=== PATIENT | female | born 1975 | race Caucasian/White ===

== ENCOUNTER 2025-01-14 16:39 | Inpatient (IN) | payer OTHER, SELFPAY ==
[2025-01-14] VITALS (13 sets, daily range): BP systolic 109–138; BP diastolic 65–103; BMI 26.3
--- NOTE | 2025-01-14 12:27 | ED.GENMED ---
History of Present Illness
<Yifan Rogers MD, Resident - Last Filed: 01/14/25 15:47>
General
Chief Complaint: Overdose Unintentional
Source: patient and police
Exam Limitations: altered mental status
Time Seen by Provider: 01/14/25 10:52
History of Present Illness
History of Present Illness:
49-year-old comes to the ED from correctional facility due to altered mental status. Thought to be going through withdrawal as she was at the correctional facility yesterday. She was found to be unresponsive and had altered mental status early
this morning after receiving her medications. At the correctional facility, she received Narcan and was brought to the ED for further evaluation. Patient is a crystal meth and heroin user and also drinks 2 pints of vodka daily.
Past History
<Yifan Rogers MD, Resident - Last Filed: 01/14/25 15:47>
Past History
ED Past Medical History: Other (Opioid use disorder), Other (Alcohol use disorder) and Other (Illicit drug use disorder)
Social History
Alcohol: Daily (2 points of vodka daily)
Drug: Other (Crystal meth, heroin)
Review of Systems
<Yifan Rogers MD, Resident - Last Filed: 01/14/25 15:47>
Review of Systems
Allergies reviewed?: Yes
Unable to obtain full review of systems at this time due to: other (Altered mental status)
Other source history: ambulance crew and other (Correctional officers)
Phy Exam
<Yifan Rogers MD, Resident - Last Filed: 01/14/25 15:47>
General Physical Exam
General Presentation: moderate distress
General Skin: cool and diaphoretic
General Mental: anxious and confused
Cardiovascular Exam
Cardiovascular Exam: no murmur and tachycardia
Pulmonary Exam
Pulmonary Exam: lungs clear, no respiratory distress and no crackles
Mental
Mental Status: oriented to person, oriented to place and confused
Psychiatric Exam
Psychiatric Exam: agitated and anxious
Course
<Yifan Rogers MD, Resident - Last Filed: 01/14/25 15:47>
Orders/Labs/Results
Orders:
Orders
01/14/25 12:16
Electrocardiogram (*1) Stat
Reason for Study: Other
Other Reason for Exam: overdose
Cardiac Monitoring- Treatment ONCE
EKG- Treatment ONCE
IV Insert/Care/Rem.- Treatment PRN
0.9% Sodium Chloride 1000 ml [Nss] 1,000 ml IV BOLUS
Midazolam HCl [Versed] 1 mg IV NOW STA
Test Result ONCE
Pulse Ox/cont/shift [RESP] Stat
Quantity: 1
01/14/25 12:17
CT Head W/o Iv Contrast Urgent
Comment:
Reason For Exam: Change in mental status
01/14/25 12:20
Buprenorphine HCl [Belbuca] 300 mcg BUCCAL NOW STA
01/14/25 12:47
Midazolam HCl [Versed] 1 mg IV NOW STA
01/14/25 13:34
Phenobarbital Sodium [Phenobarbital] 260 mg 0.9% Sodium Chloride 100 ml [Nss] 100 ml IV NOW
01/14/25 14:08
Acetaminophen Urgent
Alcohol Urgent
Complete Blood Count/With Diff Urgent
Comprehensive Metabolic Panel Urgent
HCG, Serum Qualitative Screen Urgent
Magnesium Urgent
Comment: ADD ON
Phosphorus Urgent
01/14/25 16:03
Admit/Transfer Patient As Directed
Co-Sign Provider:
Level of Care: Inpatient admission
Assign to:: ICU
Physician / Group: leslie escobar
Diagnosis: alcohol withdrawal, hypotension, opiate withdrawal, meth withdrawal, agitat
Reason for Hospitalization: alcohol withdrawal, hypotension, opiate withdrawal, meth withdrawal, agitat
Expected length of stay greater than two midnights?: Yes
ELOS- Estimated Length of Stay in days: 6
I certify the patient meets the requirements for IP care: Yes
01/14/25 16:04
Code Status As Directed
Resuscitation Status: Full Code
01/14/25 16:14
PRN Pain Medication Management As Directed
May give lesser potent ordered pain med per pt: Yes
preference::
Protocol:: Medication orders for pain may be administered in a
manner that supports deferring to patient preference
when the pt is:
- Requesting an ordered lesser potent pain medication.
Least to most potent pain medications are defined
as: acetaminophen < NSAID < tramadol < opioids
(morphine, oxycodone, hydromorphone).
- Requesting a lesser dose of the same medication IF
ORDERED.
- Requesting a less intrusive route of administration
if both routes are prescribed by the provider (PO <
IV).
01/14/25 16:21
Porcelain Finisher Consult Routine
Consulting Provider: Shruti Rubio
Was physician already notified: Yes
Reason for consult: Alcohol withdrawal, opiate withdrawal, meth withdrawal, agitation
01/14/25 17:30
Phenobarbital Sodium [Phenobarbital] 97.5 mg IV TID
01/14/25 17:31
0.9% Sodium Chloride 1000 ml [Nss] 1,000 ml IV 100 mls/hr
0.9% Sodium Chloride [Nss (Preservative Free)] See Protocol IV PRN PRN
Acetaminophen [Tylenol] 650 mg PO Q4HPRN PRN
Bisacodyl [Dulcolax] 10 mg RECTAL [id number] PRN
Buprenorphine [Subutex] 8 mg SL PRN PRN
Docusate W/Senna [Senokot-S] 1 tablet PO BIDPRN PRN
Lorazepam [Ativan] 1 mg PO Q2HPRN PRN
Lorazepam [Ativan] 2 mg IV Q1HPRN PRN
Ondansetron Injectable [Zofran] 4 mg IV Q6HPRN PRN
Polyethylene Glycol Powder [Miralax] 17 grams PO DAILYPRN PRN
Tizanidine [Zanaflex] 2 mg PO Q6HPRN PRN
01/14/25 17:31
Case Management Consult ONCE
Case Management Consult: Other
Comment: opioid withdrawal
Case Management Consult Once
Case Management Consult: Other
Comment: Substance abuse counseling
DIETARY IP CONSULT Routine
Reason for Consult: Nutrition support, possible refeeding guidelines
Activity As Directed
Activity Level: With Assistance
Clinical Opioid Withdrawal Scale (COWS) .PRN
Frequency:: now, Q4 hours x 24 hours, then PRN based on symptoms
Intake/ Output As Directed
Frequency: Per unit guidelines
MSAS SCORE As Directed
MSAS Score 0-4: Repeat MSAS every 2 hours until 0-4 for three consecutive assessments, then every 4 hours x 48
hours.
MSAS Score 5-7: For MILD withdrawl symptoms. Repeat MSAS and RASS every 2 hours
MSAS Score 8-11: For MODERATE withdrawal symptoms. Repeat MSAS and RASS every 1 hour. Consider ICU or IMU
level of care.
MSAS Score > 11: For SEVERE withdrawal symptoms. Repeat MSAS and RASS every 1 hour. Notify provider, consider
ICU level of care.
MSAS Additional Instructions: If no improvement or no decrease in score from severe to moderate within 12
hours, consult psychiatry
MSAS Notify Provider: Notify provider if patient requires more than 10 mg of Lorazepam in eight hour period.
Neurological Checks As Directed
Frequency: Per unit guidelines
Vital Signs As Directed
Frequency: Per unit guidelines
Pulse Ox/spot Check [RESP] Routine
Quantity: 1
DX Deep Vein Thrombosis Video Routine
01/14/25 17:48
Lorazepam [Ativan] 1 mg PO Q1HPRN PRN
01/14/25 18:00
Enoxaparin Sodium [Lovenox] 40 mg SC QPM
01/14/25 18:09
Loperamide [Imodium] 2 mg PO TIDPRN PRN
01/14/25 18:19
B-Hydroxybutyrate Urgent
GGTP Urgent
PTT Urgent
Prothrombin Time Urgent
01/14/25 20:43
Urinalysis Routine
Date Specimen was Collected: 01/14/25
Time Specimen was Collected: 20:40
Urine Drug Abuse Screen Urgent
Date Specimen was Collected: 01/14/25
Time Specimen was Collected: 20:40
01/14/25 22:00
Mirtazapine [Remeron] 15 mg PO HS
01/15/25 00:00
Thiamine Injection 200 mg IV Q8
01/15/25 04:10
Cardiovascular Evaluation IN AM
Comprehensive Metabolic Panel IN AM
Ferritin IN AM
Folate IN AM
Hepatitis A Antibody, Total IN AM
Hepatitis A IgM Antibody IN AM
Hepatitis B Core Ab, IgM IN AM
Hepatitis B Surface Antibody IN AM
Hepatitis B Surface Antigen IN AM
Hepatitis C Antibody IN AM
Iron IN AM
TIBC [Total Iron Binding] IN AM
Vitamin B12 IN AM
01/15/25 08:00
FOLic ACID [Folvite] 1 mg PO DAILY
FOLic ACID [Folvite] 1 mg 0.9% Sodium Chloride 50 ml [Nss] 50 ml IV DAILYPRN
Pantoprazole [Protonix] 40 mg PO DAILY
Sertraline HCl [Zoloft] 100 mg PO DAILY
01/16/25 06:00
Complete Blood Count/With Diff IN AM
Comprehensive Metabolic Panel IN AM
01/16/25 16:00
Phenobarbital [Luminal] 64.8 mg PO TID
01/17/25 06:00
Complete Blood Count/With Diff IN AM
Comprehensive Metabolic Panel IN AM
01/17/25 20:00
Thiamine HCl [Vitamin B1] 100 mg PO BID
01/18/25 06:00
Complete Blood Count/With Diff IN AM
Comprehensive Metabolic Panel IN AM
01/18/25 16:00
Phenobarbital [Luminal] 32.4 mg PO TID
01/19/25 06:00
Complete Blood Count/With Diff IN AM
Comprehensive Metabolic Panel IN AM
Abnormal Lab Results
01/14/25
14:08
Hgb 11.3 L g/dL
(12.0-16.0)
Hct 35.3 L %
(37.0-47.0)
MCV 80.8 L fL
(81.0-99.0)
MCH 25.9 L pg
(27.0-31.0)
MCHC 32.0 L g/dL
(33.0-37.0)
RDW 16.5 H %
(11.5-14.5)
Absolute Lymphs (auto) 0.7 L 10^3/uL
(1.2-3.4)
Neutrophils % 78.2 H %
(42.2-75.2)
Lymphocytes % 12.9 L %
(20.5-51.1)
BUN 20 H mg/dl
(7-17)
Glucose 106 H mg/dl
(70-99)
AST 75 H U/L
(14-36)
ALT 40 H U/L
(0-35)
Acetaminophen < 10 L ug/ml
(10-30)
01/14/25 14:08
01/14/25 14:08
Vital Signs
Initial and Last Documented VS:
Initial Vital Signs
Temp Pulse Resp BP Pulse Ox
97.8 F 105 20 138/103 97
01/14/25 10:50 01/14/25 10:50 01/14/25 10:50 01/14/25 10:50 01/14/25 10:50
Last Documented Vital Signs
Temp Pulse Resp BP Pulse Ox
98.0 F 68 13 97/75 95
01/15/25 16:13 01/15/25 17:00 01/15/25 17:00 01/15/25 17:00 01/15/25 17:00
<Kei Mendoza MD - Last Filed: 01/15/25 18:40>
Orders/Labs/Results
Orders:
Orders
01/14/25 12:16
Electrocardiogram (*1) Stat
Reason for Study: Other
Other Reason for Exam: overdose
Cardiac Monitoring- Treatment ONCE
EKG- Treatment ONCE
IV Insert/Care/Rem.- Treatment PRN
0.9% Sodium Chloride 1000 ml [Nss] 1,000 ml IV BOLUS
Midazolam HCl [Versed] 1 mg IV NOW STA
Test Result ONCE
Pulse Ox/cont/shift [RESP] Stat
Quantity: 1
01/14/25 12:17
CT Head W/o Iv Contrast Urgent
Comment:
Reason For Exam: Change in mental status
01/14/25 12:20
Buprenorphine HCl [Belbuca] 300 mcg BUCCAL NOW STA
01/14/25 12:47
Midazolam HCl [Versed] 1 mg IV NOW STA
01/14/25 13:34
Phenobarbital Sodium [Phenobarbital] 260 mg 0.9% Sodium Chloride 100 ml [Nss] 100 ml IV NOW
01/14/25 14:08
Acetaminophen Urgent
Alcohol Urgent
Complete Blood Count/With Diff Urgent
Comprehensive Metabolic Panel Urgent
HCG, Serum Qualitative Screen Urgent
Magnesium Urgent
Comment: ADD ON
Phosphorus Urgent
01/14/25 16:03
Admit/Transfer Patient As Directed
Co-Sign Provider:
Level of Care: Inpatient admission
Assign to:: ICU
Physician / Group: leslie escobar
Diagnosis: alcohol withdrawal, hypotension, opiate withdrawal, meth withdrawal, agitat
Reason for Hospitalization: alcohol withdrawal, hypotension, opiate withdrawal, meth withdrawal, agitat
Expected length of stay greater than two midnights?: Yes
ELOS- Estimated Length of Stay in days: 6
I certify the patient meets the requirements for IP care: Yes
01/14/25 16:04
Code Status As Directed
Resuscitation Status: Full Code
01/14/25 16:14
PRN Pain Medication Management As Directed
May give lesser potent ordered pain med per pt: Yes
preference::
Protocol:: Medication orders for pain may be administered in a
manner that supports deferring to patient preference
when the pt is:
- Requesting an ordered lesser potent pain medication.
Least to most potent pain medications are defined
as: acetaminophen < NSAID < tramadol < opioids
(morphine, oxycodone, hydromorphone).
- Requesting a lesser dose of the same medication IF
ORDERED.
- Requesting a less intrusive route of administration
if both routes are prescribed by the provider (PO <
IV).
01/14/25 16:21
Porcelain Finisher Consult Routine
Consulting Provider: Shruti Rubio
Was physician already notified: Yes
Reason for consult: Alcohol withdrawal, opiate withdrawal, meth withdrawal, agitation
01/14/25 17:30
Phenobarbital Sodium [Phenobarbital] 97.5 mg IV TID
01/14/25 17:31
0.9% Sodium Chloride 1000 ml [Nss] 1,000 ml IV 100 mls/hr
0.9% Sodium Chloride [Nss (Preservative Free)] See Protocol IV PRN PRN
Acetaminophen [Tylenol] 650 mg PO Q4HPRN PRN
Bisacodyl [Dulcolax] 10 mg RECTAL [id number] PRN
Buprenorphine [Subutex] 8 mg SL PRN PRN
Docusate W/Senna [Senokot-S] 1 tablet PO BIDPRN PRN
Lorazepam [Ativan] 1 mg PO Q2HPRN PRN
Lorazepam [Ativan] 2 mg IV Q1HPRN PRN
Ondansetron Injectable [Zofran] 4 mg IV Q6HPRN PRN
Polyethylene Glycol Powder [Miralax] 17 grams PO DAILYPRN PRN
Tizanidine [Zanaflex] 2 mg PO Q6HPRN PRN
01/14/25 17:31
Case Management Consult ONCE
Case Management Consult: Other
Comment: opioid withdrawal
Case Management Consult Once
Case Management Consult: Other
Comment: Substance abuse counseling
DIETARY IP CONSULT Routine
Reason for Consult: Nutrition support, possible refeeding guidelines
Activity As Directed
Activity Level: With Assistance
Clinical Opioid Withdrawal Scale (COWS) .PRN
Frequency:: now, Q4 hours x 24 hours, then PRN based on symptoms
Intake/ Output As Directed
Frequency: Per unit guidelines
MSAS SCORE As Directed
MSAS Score 0-4: Repeat MSAS every 2 hours until 0-4 for three consecutive assessments, then every 4 hours x 48
hours.
MSAS Score 5-7: For MILD withdrawl symptoms. Repeat MSAS and RASS every 2 hours
MSAS Score 8-11: For MODERATE withdrawal symptoms. Repeat MSAS and RASS every 1 hour. Consider ICU or IMU
level of care.
MSAS Score > 11: For SEVERE withdrawal symptoms. Repeat MSAS and RASS every 1 hour. Notify provider, consider
ICU level of care.
MSAS Additional Instructions: If no improvement or no decrease in score from severe to moderate within 12
hours, consult psychiatry
MSAS Notify Provider: Notify provider if patient requires more than 10 mg of Lorazepam in eight hour period.
Neurological Checks As Directed
Frequency: Per unit guidelines
Vital Signs As Directed
Frequency: Per unit guidelines
Pulse Ox/spot Check [RESP] Routine
Quantity: 1
DX Deep Vein Thrombosis Video Routine
01/14/25 17:48
Lorazepam [Ativan] 1 mg PO Q1HPRN PRN
01/14/25 18:00
Enoxaparin Sodium [Lovenox] 40 mg SC QPM
01/14/25 18:09
Loperamide [Imodium] 2 mg PO TIDPRN PRN
01/14/25 18:19
B-Hydroxybutyrate Urgent
GGTP Urgent
PTT Urgent
Prothrombin Time Urgent
01/14/25 20:43
Urinalysis Routine
Date Specimen was Collected: 01/14/25
Time Specimen was Collected: 20:40
Urine Drug Abuse Screen Urgent
Date Specimen was Collected: 01/14/25
Time Specimen was Collected: 20:40
01/14/25 22:00
Mirtazapine [Remeron] 15 mg PO HS
01/15/25 00:00
Thiamine Injection 200 mg IV Q8
01/15/25 04:10
Cardiovascular Evaluation IN AM
Comprehensive Metabolic Panel IN AM
Ferritin IN AM
Folate IN AM
Hepatitis A Antibody, Total IN AM
Hepatitis A IgM Antibody IN AM
Hepatitis B Core Ab, IgM IN AM
Hepatitis B Surface Antibody IN AM
Hepatitis B Surface Antigen IN AM
Hepatitis C Antibody IN AM
Iron IN AM
TIBC [Total Iron Binding] IN AM
Vitamin B12 IN AM
01/15/25 08:00
FOLic ACID [Folvite] 1 mg PO DAILY
FOLic ACID [Folvite] 1 mg 0.9% Sodium Chloride 50 ml [Nss] 50 ml IV DAILYPRN
Pantoprazole [Protonix] 40 mg PO DAILY
Sertraline HCl [Zoloft] 100 mg PO DAILY
01/16/25 06:00
Complete Blood Count/With Diff IN AM
Comprehensive Metabolic Panel IN AM
01/16/25 16:00
Phenobarbital [Luminal] 64.8 mg PO TID
01/17/25 06:00
Complete Blood Count/With Diff IN AM
Comprehensive Metabolic Panel IN AM
01/17/25 20:00
Thiamine HCl [Vitamin B1] 100 mg PO BID
01/18/25 06:00
Complete Blood Count/With Diff IN AM
Comprehensive Metabolic Panel IN AM
01/18/25 16:00
Phenobarbital [Luminal] 32.4 mg PO TID
01/19/25 06:00
Complete Blood Count/With Diff IN AM
Comprehensive Metabolic Panel IN AM
Abnormal Lab Results
01/14/25
14:08
Hgb 11.3 L g/dL
(12.0-16.0)
Hct 35.3 L %
(37.0-47.0)
MCV 80.8 L fL
(81.0-99.0)
MCH 25.9 L pg
(27.0-31.0)
MCHC 32.0 L g/dL
(33.0-37.0)
RDW 16.5 H %
(11.5-14.5)
Absolute Lymphs (auto) 0.7 L 10^3/uL
(1.2-3.4)
Neutrophils % 78.2 H %
(42.2-75.2)
Lymphocytes % 12.9 L %
(20.5-51.1)
BUN 20 H mg/dl
(7-17)
Glucose 106 H mg/dl
(70-99)
AST 75 H U/L
(14-36)
ALT 40 H U/L
(0-35)
Acetaminophen < 10 L ug/ml
(10-30)
01/14/25 14:08
01/14/25 14:08
Vital Signs
Initial and Last Documented VS:
Initial Vital Signs
Temp Pulse Resp BP Pulse Ox
97.8 F 105 20 138/103 97
01/14/25 10:50 01/14/25 10:50 01/14/25 10:50 01/14/25 10:50 01/14/25 10:50
Last Documented Vital Signs
Temp Pulse Resp BP Pulse Ox
98.0 F 68 13 97/75 95
01/15/25 16:13 01/15/25 17:00 01/15/25 17:00 01/15/25 17:00 01/15/25 17:00
<Yifan Rogers MD, Resident - Last Filed: 01/14/25 15:47>
MDM/Problems Addressed
Differential Diagnosis Includes:
Opioid withdrawal, alcohol withdrawal, drug use disorder
MDM/Problems Addressed:
Plan
- Altered mental status due to opioid/alcohol withdrawal
- Will check CMP, CBC, test, urine drug, CT head when able, alcohol level
- Will start buprenorphine and midazolam
- Will start normal saline
- Continue monitoring mental status with current medications
<Yifan Rogers MD, Resident - Last Filed: 01/14/25 15:47>
*Pulse Oximetry
SaO2: 96
Oxygen Mode of Delivery: Room air
Patient hypoxic: no
*Critical Care Note
Total Time (30-74mins, 75-104mins- exclusive of procedures): Not Applicable
<Kei Mendoza MD - Last Filed: 01/15/25 18:40>
*Critical Care Note
Total Time (30-74mins, 75-104mins- exclusive of procedures): 40
<Yifan Rogers MD, Resident - Last Filed: 01/14/25 15:47>
Update Note
Update Note:
Phenobarbital started due to possible alcohol withdrawal
EKG showed no concerns
Most likely will warrant In-patient admission
CT Head pending
Labs drawn, awaiting results
Monitoring blood pressure, abnormal reading in the morning (138/103) may have been due to patient moving. Secondary reading 122/81
CT Head showed no abnormality
Admit to ICU for further management of withdrawl/somnolence
ED Attending Note
<Yifan Rogers MD, Resident - Last Filed: 01/14/25 15:47>
-
Portions of this chart may have been created with voice recognition software.� Occasional wrong word or��sound alike� substitutions may have occurred due to the inherent limitations of voice recognition software.
<Kei Mendoza MD - Last Filed: 01/15/25 18:40>
ED Attending Note
Patient seen and examined by attending physician: Yes
I performed a history and physical exam of patient and discussed management with resident, I reviewed resident's note and agree with documented findings and plan of care.: Yes
ED Attending Note:
Patient was found unresponsive in her room this morning. Just came to alf yesterday. Admits to chronic alcohol use. Also on Suboxone. There is some history of using crystal meth either this morning overnight or yesterday. Was found
unresponsive given Narcan with apparently some improvement in alertness.
\\On exam patient is very agitated. However she can redirect and answer questions. No obvious trauma. Tachycardic. Warm and dry. No respiratory distress. Grossly nonfocal. Will follow simple commands.
Impression is severe agitation suspect secondary to alcohol withdrawal and possible crystal meth/other ingestion. Patient was given benzodiazepines. Labs in progress. We will get a CT scan for completeness. Will warrant inpatient management.
Patient was rechecked multiple times secondary to her agitation. Multiple discussions with pharmacy concerning approach to sedation. Patient responded well to phenobarbital.
Critical care 40 minutes
Discharge Plan
Departure
Patient Disposition: Admit
Date of Disposition: 01/14/25
Time of Disposition: 15:23
Admit to: ICU
Presentation/result/management discussed w/ accepting MD/DO: Hospitalist
Discharge Problem:
Altered mental status, Multiple substance withdrawal
Interventions
Interventions:
*General Assessment Last Done: 01/14/25 16:33
*Neglect/Abuse Screening Last Done: 01/14/25 16:33
*ED- Fall Risk Assessment Last Done: 01/14/25 16:33
*Nursing Disposition Last Done: 01/14/25 17:40
ED- Cardiac Assessment Last Done: 01/14/25 12:00
ED- Neurological Assessment Last Done: 01/14/25 12:00
ED-Psychological Assessment Last Done: 01/14/25 12:00
ED- Pulmonary Assessment Last Done: 01/14/25 16:30
Discharge Date and Time
Discharge Date/Time: 01/14/25 17:41
[2025-01-14] MEDS: VERSED 1 MG IV ×2 (12:37→12:52)
[2025-01-14] MEDS: PHENOBARBITAL 104 MG IV (14:09)
[2025-01-14] MEDS: NSS 1000 IV ×2 (14:10→17:40)
[2025-01-14 14:18] LABS: Hematocrit 35.3 % (37.0-47.0); Hemoglobin 11.3 g/dL (12.0-16.0); Mean Corp Hgb Conc. 32.0 g/dL (33.0-37.0); Mean Corpuscular Volume 80.8 fL (81.0-99.0); Nucleated Red Blood Cells % 0 %; Platelet Count 258 10^3/uL (130-400); Red Cell Dist. Width 16.5 % (11.5-14.5)
[2025-01-14 14:42] LABS: ALT (SGPT) 40 U/L (0-35); AST (SGOT) 75 U/L (14-36); Acetaminophen < 10 ug/ml (10-30); Albumin 4.4 g/dl (3.5-5.0); Alkaline Phosphatase 47 U/L (38-126); Blood Urea Nitrogen 20 mg/dl (7-17); Calcium 9.7 mg/dl (8.4-10.2); Carbon Dioxide 30 mmol/L (22-30); Chloride 103 mmol/L (98-107); Estimated Creatinine Clearance 113 ml/min; Glucose 106 mg/dl (70-99); Potassium 3.6 mmol/L (3.5-5.1); Sodium 139 mmol/L (135-145); Total Protein 7.5 g/dl (6.3-8.2); eGFR > 60.00
[2025-01-14 14:45] LABS: HCG, Serum Qualitative Screen Negative
--- NOTE | 2025-01-14 15:41 | HPS.HSE ---
Family Physician
-
Family Physician: Facility [facility]
Chief Complaint
-
Unresponsive episode at correctional facility, hypotension, alcohol abuse, crystal meth, Suboxone use
History of Present Illness
49-year-old female from [facility] where she was brought yesterday for a suppose it warrant. She was started on clonazepam and buprenorphine on along with her routine a.m. medications then she was she was found unresponsive,
hypotensive 70 over 40s with altered mental status at approximately 10 AM she then received she received Narcan woke up and was extremely agitated according to 2 correctional officers at bedside. Due to her extreme agitation she was unable to take
sublingual buprenorphine in the ER. She required Versed as she was thrashing about the bed. IV phenobarbital was given due to history of drinking 2 pints of vodka daily. She reportedly uses crystal methamphetamine, heroin and drink 2 pints of
vodka daily. She does not appear to have any skin popping areas on her body she does have some abrasions to left and right wrist from thrashing with handcuffs on she has current left leg handcuffed to the bed. She is sedated with Versed and
actively snoring. There is no other medical history or review of systems provided. She has past medical history of alcohol abuse, crystal methamphetamine use, Suboxone use, hypertension, depression, GERD
Medical History
Past Medical History
Past Medical History: Reports Other
Additional Past Medical History:
alcohol abuse
crystal methamphetamine use
Suboxone use
hypertension
depression
GERD
Past Surgical History: Reports Other (Unknown)
Social History
Alcohol: Daily (2 pints of vodka)
Drug: Other (Crystal meth, Suboxone)
Living: Halfway ([facility])
Family History
Family History: Unable to Obtain
Allergies / Home Medications
Allergies reflects when Allergies were last updated in [employer].
Home Medications with original date entered in [employer]
Allergy/Medication List:
Allergies
Allergy/AdvReac Type Severity Reaction Status Date / Time
Penicillins Allergy Mild Rash Verified 01/14/25 11:00
Home Medications
buprenorphine HCl 8 mg sublingual tablet 24 mg sublingual DAILY 01/14/25
clonazepam 0.5 mg tablet 0.5 mg PO DIRECTED 01/14/25
folic acid 1 mg tablet 1 mg PO DAILY 01/14/25
gabapentin 100 mg capsule 400 mg PO DIRECTED 01/14/25
hydrochlorothiazide 12.5 mg tablet 12.5 mg PO DAILY 01/14/25
lisinopril 20 mg tablet 20 mg PO DAILY 01/14/25
loperamide 2 mg tablet 2 mg PO TIDPRN PRN dairrhea 01/14/25
magnesium oxide 400 mg PO DAILY 01/14/25
mirtazapine 15 mg tablet 15 mg PO HS 01/14/25
naloxone 4 mg/actuation nasal spray (Narcan) 4 mg intranasal Q2MPRN PRN over dose 01/14/25
ondansetron HCl 4 mg tablet 4 mg PO TIDPRN PRN nausea 01/14/25
pantoprazole 40 mg tablet,delayed release (Protonix) 40 mg PO DAILY 01/14/25
sertraline 100 mg tablet 100 mg PO DAILY 01/14/25
therapeutic multivitamin 1 tab PO DAILY 01/14/25
thiamine HCl (vitamin B1) 100 mg tablet 100 mg PO DAILY 01/14/25
Review of Systems
-
History Source: Other (2 correctional officers at bedside)
A 12 point ROS was completed and negative except as noted: Yes
Constitutional: Denies Fever or Chills
EENT: Reports Other (Patient snoring sedated post IV Versed); Denies Runny Nose
Respiratory: Denies Cough or Trouble Breathing
Cardiac: Denies Diaphoresis
Abdomen/GI: Denies Vomiting or Diarrhea
Musculoskeletal: Denies Edema
Skin: Reports Other (Tiny abrasions right wrist from thrashing with cuffs in place); Denies Itching or Rash
Neurological: Reports Other (Sedated post IV Versed)
Physical Exam
Vital Signs
Vital Signs
Temp Pulse Resp BP Pulse Ox
97.8 F 120 26 122/81 97
01/14/25 10:50 01/14/25 13:24 01/14/25 13:00 01/14/25 12:00 01/14/25 13:15
Physical Exam
General: Other (Sedated and snoring post IV Versed)
HEENT: NormoCephalic, Atraumatic, [place] Conjunctivae, No Ptosis and Other (Dry oral mucosa)
Respiratory: Clear and Other (Sedated and snoring); No Wheezes, Rales or Rhonchi
Cardiac: S1/S2 and Regular Rhythm; No Murmur, Rub, Gallop or Peripheral Edema
Breast: Deferred by me
GI: Soft, Non Tender, Non Distended, Normal Bowel Sounds and No Hepatosplenomegaly
Rectal: Deferred by Provider
Musculoskeletal: No Clubbing, No Cyanosis and No Edema
Skin: Warm and Dry; No Rash
Neuro: Sedated (Snoring post IV Versed)
Laboratory Results
-
01/14/25 14:08
01/14/25 14:08
Laboratory Results
Total Bilirubin 1.0 mg/dl (0.2-1.3) 01/14/25 14:08
AST 75 U/L (14-36) H 01/14/25 14:08
ALT 40 U/L (0-35) H 01/14/25 14:08
Alkaline Phosphatase 47 U/L (38-126) 01/14/25 14:08
Impression/Plan
-
Impression/plan:
Admit to ICU
#Acute alcohol withdrawal/alcohol abuse
Drinks 2 pints of vodka daily
- MSAs screen with protocol, IV thiamine IV folate
- Phenobarb taper
- Patient received Versed in the ER due to extreme agitation
- Consult supply chain technician
#Opiate abuse/methamphetamine use
Uses Suboxone unsure amount
-Opiate protocol with buprenorphine initiated
- Check urine drug screen
#Acute transaminitis
AST 75 ALT 40
-Check hepatitis profile, follow CMP
#Anemia microcytic
Hgb 11.3, MCV 80.8
-Check iron panel, B12, folate
#HTN
BP 122/81
Was found hypotensive this morning 70/40 at [facility] would hold lisinopril 20 mg daily HCTZ 12.5 mg daily
#Depression
- Continue Zoloft 100 mg daily
#GERD
Continue Protonix 40 mg daily
DVT prophylaxis
Subcu Lovenox
Full code
--- NOTE | 2025-01-14 16:23 | CON.INTV ---
Consultation
Consultation Request
Date/Time Consultation Requested: 01/14/25
Date/Time Consultation Performed: 01/14/25
Performing Provider: Ramiro
Reason for Consultation: Overdose
Medical History
-
History of Present Illness:
Patient is a 49-year-old female with history of substance abuse, ETOH use presenting from [facility] for change in MS. She was started on clonazepam and buprenorphine at the Facility, but was later found unresponsive,
hypotensive 70/40s with altered mental status. Received Narcan at 10AM and woke up and was extremely agitated according to 2 correctional officers at bedside. Due to her extreme agitation she was unable to take sublingual buprenorphine in the ER.
She required Versed as she was thrashing about the bed. IV phenobarbital was given due to history of drinking 2 pints of vodka daily. She reportedly uses crystal methamphetamine, heroin and drink 2 pints of vodka daily. She is sedated with Versed
and actively snoring, no other medical history or review of systems provided.
Past Medical History
Past Medical History: Other (see list below)
Social History
Tobacco: Non-smoker
Alcohol: Daily
Drug: Former User
Family History
Family History: Reviewed & Not Pertinent
Allergies / Home Medications
Allergies
Allergy/AdvReac Type Severity Reaction Status Date / Time
Penicillins Allergy Mild Rash Verified 01/14/25 11:00
Home Medications
�Medication �Instructions �Recorded �Confirmed �Last Taken �Type
buprenorphine HCl 8 mg sublingual 24 mg sublingual DAILY 01/14/25 01/14/25 01/14/25 History
tablet
clonazepam 0.5 mg tablet 0.5 mg PO DIRECTED 01/14/25 01/14/25 01/14/25 History
folic acid 1 mg tablet 1 mg PO DAILY 01/14/25 01/14/25 01/14/25 History
gabapentin 100 mg capsule 400 mg PO DIRECTED 01/14/25 01/14/25 01/14/25 History
hydrochlorothiazide 12.5 mg tablet 12.5 mg PO DAILY 01/14/25 01/14/25 01/14/25 History
lisinopril 20 mg tablet 20 mg PO DAILY 01/14/25 01/14/25 01/14/25 History
loperamide 2 mg tablet 2 mg PO TIDPRN PRN dairrhea 01/14/25 01/14/25 Unknown History
magnesium oxide 400 mg PO DAILY 01/14/25 01/14/25 01/14/25 History
mirtazapine 15 mg tablet 15 mg PO HS 01/14/25 01/14/25 01/13/25 History
naloxone 4 mg/actuation nasal 4 mg intranasal Q2MPRN PRN over 01/14/25 01/14/25 01/14/25 History
spray (Narcan) dose
ondansetron HCl 4 mg tablet 4 mg PO TIDPRN PRN nausea 01/14/25 01/14/25 Unknown History
pantoprazole 40 mg tablet,delayed 40 mg PO DAILY 01/14/25 01/14/25 01/14/25 History
release (Protonix)
sertraline 100 mg tablet 100 mg PO DAILY 01/14/25 01/14/25 01/14/25 History
therapeutic multivitamin 1 tab PO DAILY 01/14/25 01/14/25 01/14/25 History
thiamine HCl (vitamin B1) 100 mg 100 mg PO DAILY 01/14/25 01/14/25 01/14/25 History
tablet
Review of Systems
-
History Source: Transfer Record
Vitals / Labs / Diagnostic Testing
Vital Signs
Temp Pulse Resp BP Pulse Ox
97.8 F 120 26 122/81 97
01/14/25 10:50 01/14/25 13:24 01/14/25 13:00 01/14/25 12:00 01/14/25 13:15
Lab Data
01/14/25 14:08
01/14/25 14:08
Diagnostic Testing:
Physical Exam
-
HEENT: Normocephalic, Anicteric and Moist Mucous Membranes
Cardiovascular: S1/S2 and Regular Rhythm
Respiratory: Clear, Non-Labored Respirations and Other (snoring, witnessed apneas)
GI: Soft, Non Distended and Non Tender
Neurology: Other (sedated, snoring)
Skin: Warm, Dry and Good Color
General: Comfortable and Other (NAD)
Assessment
-
Patient is a 49-year-old female with history of substance abuse, ETOH use presenting from [facility] for change in [place]. She was started on clonazepam and buprenorphine at the Facility, but was later found unresponsive,
hypotensive 70/40s with altered mental status. Received Narcan at 10AM and woke up and was extremely agitated according to 2 correctional officers at bedside. Due to her extreme agitation she was unable to take sublingual buprenorphine in the ER.
She required Versed as she was thrashing about the bed. IV phenobarbital was given due to history of drinking 2 pints of vodka daily. She reportedly uses crystal methamphetamine, heroin and drink 2 pints of vodka daily. Admitted to ICU for
potential withdrawal.
Change in MS
Acute alcohol withdrawal/alcohol abuse
Drinks 2 pints of vodka daily
Opiate abuse/methamphetamine use
Suspect overdose s/p narcan
Hypotension, resolved
Acute transaminitis, AST 75 ALT 40
Anemia microcytic
Conditions present PERSONNEL SCHEDULER
History of opiate/crystal methamphetamine use
Suboxone use
Hypertension
Depression
GERD
Alcohol abuse: Daily (2 pints of vodka)
Incarcerated status ([facility])
Plan
Sedated with Versed, unable to exam neurologically
Psychiatric history noted above including ETOH abuse/IVDU
UDS noted as above
Pain/sedation: MSAS, opiate w/d protocol
Thiamine/folate
RASS goals: 0
Hemodynamically stable, not requiring pressors.
Cardiac history reviewed--HTN
Hypotension noted, resolved
No prior ECHO for review
Monitor on telemetry
Oxygen needs: stable on RA, snoring w/ apneas noted
Suspect GERTRUDE, outpatient PSG recommended
Prior history of lung disease: none
Supplemental O2 as indicated to maintain sats > 89%
No prior chest imaging for review
NPO, resume diet when able
Instructional Technology Coach recommendations
Aspiration precautions, HOB > 30 degrees
Speech therapy eval can be considered if at elevated risk
GI prophylaxis if indicated for mechanical ventilation >48 hours, prior history of GERD, stress ulcer formation in the critically ill
Creat at baseline, no history of renal disease
Void trials
Follow urine output, critical I/Os
Replete electrolytes as needed
No signs/symptoms suspicious for infectious etiology at this time
Observe off antibiotics for now
Follow fever trend, WBC count
CBC stable, no signs of bleeding or coagulopathy.
DVT prophylaxis as assessed based on risk, including mechanical SCDs
Can transfuse if indicated for Hb <7, plt < 10
No prior h/o diabetes or thyroid disease
Monitor accuchecks PRN/SS coverage if needed
We will follow
Diagnostic Data
Chest X-Ray:
CT Scan: HCT 01/14/25- No evidence of acute intracranial abnormality.
Echo:
PFT's:
Reports and relevant images were personally reviewed.
Critical Care time 61 mins -- The patient is admitted for acute critical illness for the treatment of vital organ failure and/or prevention of further life-threatening conditions. Total care includes time spent in review of history, physical exam,
medications, hemodynamic/ventilator parameters, laboratory data, imaging and discussion with house staff, pharmacy, respiratory therapy, curb setter helper, and nursing.
--- NOTE | 2025-01-14 17:18 | W.PN.UPDATE ---
Update Note
Progress Note Update
This is an addendum to H&P written by Deirdre Recinos on 01/14/2025. Patient seen and examined independently with LADLER
49-year-old female past medical history of alcohol use disorder, opiate use disorder, crystal meth user, presenting from correctional facility for altered mental status. �Noted to be unresponsive and altered after receiving medications clonazepam
and buprenorphine this morning. �Was hypotensive. �Received Narcan correctional facility.
Vital signs show sinus tachycardia and tachypnea. Patient currently asleep and cannot provide history.
Labs show transaminitis.
CT head shows no acute intracranial abnormality.
Tylenol level under 10. �Alcohol level under 10.
Patient with severe multidrug withdrawal was concerning for alcohol/opiate/crystal meth withdrawal.
Transaminitis secondary to alcohol and drugs.
UDS pending. �IV fluids being given. �Phenobarbital protocol started. �As needed Ativan. �Opiate withdrawal protocol. �Thiamine and folate. �Checking hepatitis profile.
--- NOTE | 2025-01-14 17:42 | PTCARENOTE ---
vitals filed from ED upon arrival to ICU.
--- NOTE | 2025-01-14 17:50 | PTCARENOTE ---
arrived in ICU, initially calm, attempted to place new IV line, unable, pt became very agitated and profane, uncooperative, refusing all care and demanding to be released back to nursing home. VS noted. Denies urge to urinate at this time, when
undisturbed pt in somnolent.
[2025-01-14 17:54] LABS: Glucose - Point of Care 86 mg/dl (70-99)
[2025-01-14] MEDS: LOVENOX 40 MG SC (18:07)
[2025-01-14] MEDS: PHENOBARBITAL 97.5 MG IV ×2 (18:07→20:59)
--- NOTE | 2025-01-14 18:32 | PTCARENOTE ---
second IV placed under ultrasound, pt slightly more cooperative initially then yelling, then fell back to sleep after meds, see MAR. presently resting. asked earlier about needing to urinate then fell asleep, bedpan and specimen cup bedside for
sample when available.
[2025-01-14 18:39] LABS: INR 1.03; PT 14.0 Sec (11.4-14.6)
[2025-01-14 18:40] LABS: APTT 25.1 Sec (23.4-35.0)
[2025-01-14 18:57] LABS: GGTP 50 U/L (12-43)
[2025-01-14 19:19] LABS: Magnesium 1.6 mg/dl (1.6-2.3)
--- NOTE | 2025-01-14 20:15 | PTCARENOTE ---
Rec'd pt lethargic but arousable,SHE at 4mm, sluggish, 1 foot shackled to bed, 2 guards present,pt w/ vague orientation, SR, + pulses, skin warm/dry, RA, lungs clear, sat 97, + bowel sounds, no bm, abd soft, no n/v, NPO, HNVyet this shift
--- NOTE | 2025-01-14 20:45 | PTCARENOTE ---
bladder scanned for 497 mo, pt placed on bedpan but immediately fell asleep; Str cath for 450ml yellow urine, specimen sent, pt became extremely agitated, screaming, cursing and fighting,divine 5mg iv given
2100- cont agitation, screaming, cursing,unable to calm down, refused dose of subutex, phenobarb given as ordered, bilat wrist restraints applied
[2025-01-14] MEDS: VALIUM INJECTION 5 MG IV (20:50)
[2025-01-14 20:59] LABS: Urine Character Clear (Clear)
[2025-01-14 21:08] LABS: Urine Squamous Cell 0-2 /LPF (Few)
[2025-01-14 21:10] LABS: Urine Red Blood Cell 0-2 /HPF (0-2)
[2025-01-14] MEDS: THIAMINE INJECTION 200 MG IV (23:44)
[2025-01-15] VITALS (23 sets, daily range): BP systolic 86–133; BP diastolic 57–88; BMI 25.5
--- NOTE | 2025-01-15 | PTCARENOTE ---
sleeping, awakened when med given, started screaming and then calmed down and fell back to sleep
[2025-01-15] MEDS: NSS 1000 IV ×2 (01:57→12:21)
[2025-01-15] MEDS: VALIUM INJECTION 5 MG IV (04:34)
[2025-01-15 04:36] LABS: ALT (SGPT) 42 U/L (0-35); AST (SGOT) 64 U/L (14-36); Albumin 4.1 g/dl (3.5-5.0); Alkaline Phosphatase 50 U/L (38-126); Blood Urea Nitrogen 19 mg/dl (7-17); Calcium 9.1 mg/dl (8.4-10.2); Carbon Dioxide 29 mmol/L (22-30); Chloride 107 mmol/L (98-107); Estimated Creatinine Clearance 113 ml/min; Glucose 81 mg/dl (70-99); HDL Cholesterol 67 mg/dl; Iron 47 ug/dl (37-170); LDL Cholesterol, Calculated 90 mg/dl; Magnesium 1.9 mg/dl (1.6-2.3); Potassium 3.5 mmol/L (3.5-5.1); Sodium 142 mmol/L (135-145); Total Protein 6.9 g/dl (6.3-8.2); Very Low Density Lipoprotein 26 mg/dl (0-30); eGFR > 60.00
--- NOTE | 2025-01-15 04:39 | PTCARENOTE ---
pt sleeping until awakened to draw labs , combative, screaming, cursing, divine 5mg iv given
[2025-01-15 04:45] LABS: Total Iron Binding Capacity 450 ug/dl (265-497)
[2025-01-15 05:13] LABS: Hepatitis B Surface Antigen Negative (Negative)
[2025-01-15 05:16] LABS: Ferritin 11.6 ng/ml (6.24-137)
[2025-01-15 05:31] LABS: Hepatitis A Antibody, Total Positive (Negative); Hepatitis C Antibody Negative (Negative)
[2025-01-15 05:47] LABS: Folate 7.4 ng/ml (2.76-20); Vitamin B12 440 pg/ml (239-931)
--- NOTE | 2025-01-15 07:09 | W.PN.INTV ---
Today's Communication / Plan
Recommendations
Doing well today, stable on RA
Diet advancement, PT/OT
Remains on phenobarb taper, Valium MSAS PRN
If doing well, can transfer out of ICU--we will sign off upon transfer
Assessment
-
Patient is a 49-year-old female with history of substance abuse, ETOH use presenting from [facility] for change in MS. She was started on clonazepam and buprenorphine at the Facility, but was later found unresponsive,
hypotensive 70/40s with altered mental status. Received Narcan at 10AM and woke up and was extremely agitated according to 2 correctional officers at bedside. Due to her extreme agitation she was unable to take sublingual buprenorphine in the ER.
She required Versed as she was thrashing about the bed. IV phenobarbital was given due to history of drinking 2 pints of vodka daily. She reportedly uses crystal methamphetamine, heroin and drink 2 pints of vodka daily. Admitted to ICU for
potential withdrawal.
Change in MS
Acute alcohol withdrawal/alcohol abuse, last drink 01/12
Drinks 2 pints of vodka daily
Opiate abuse/methamphetamine use
Suspect overdose s/p narcan
Hypotension, resolved
Acute transaminitis, AST 75 ALT 40
Anemia microcytic
Conditions present CUT OFF TENDER GLASS
History of opiate/crystal methamphetamine use
Suboxone use
Hypertension
Depression
GERD
Alcohol abuse: Daily (2 pints of vodka)
Incarcerated status ([facility])
Plan
MS improving, responsive today
Psychiatric history noted above including ETOH abuse/IVDU
UDS noted as above
Last drink tuesday, likely at peak 72 hours today
Pain/sedation: MSAS, opiate w/d protocol, remains on phenobarb
Thiamine/folate
RASS goals: 0
Hemodynamically stable, not requiring pressors.
Cardiac history reviewed--HTN
Hypotension noted, resolved
No prior ECHO for review
Monitor on telemetry
Oxygen needs: stable on RA, snoring w/ apneas noted
Suspect GERTRUDE, outpatient PSG recommended
Prior history of lung disease: none
Supplemental O2 as indicated to maintain sats > 89%
No prior chest imaging for review
Advance diet as tolerated
Inside Sales Account Executive recommendations
Aspiration precautions, HOB > 30 degrees
Speech therapy eval can be considered if at elevated risk
GI prophylaxis if indicated
Creat at baseline, no history of renal disease
Void trials
Follow urine output, critical I/Os
Replete electrolytes as needed
No signs/symptoms suspicious for infectious etiology at this time
Observe off antibiotics for now
Follow fever trend, WBC count
CBC stable, no signs of bleeding or coagulopathy.
DVT prophylaxis as assessed based on risk, including mechanical SCDs
Can transfuse if indicated for Hb <7, plt < 10
No prior h/o diabetes or thyroid disease
Monitor accuchecks PRN/SS coverage if needed
Diagnostic Data
Chest X-Ray:
CT Scan: HCT 01/14/25- No evidence of acute intracranial abnormality.
Echo:
PFT's:
Reports and relevant images were personally reviewed.
Critical Care time 31 mins -- The patient is admitted for acute critical illness for the treatment of vital organ failure and/or prevention of further life-threatening conditions. Total care includes time spent in review of history, physical exam,
medications, hemodynamic/ventilator parameters, laboratory data, imaging and discussion with house staff, pharmacy, respiratory therapy, herd tester, and nursing.
Subjective Dataa
Subjective Data
Date of Service:
Date of Service: January 15, 2025
Chief Complaint: Shaper Machine Hand Follow Up
Subjective:
Doing well today, more awake/conversive
Stable on RA, remains in restraints
No events ON
Objective Data
Data Reviewed
Vital Signs / I&O / Oxygen:
Vital Signs
Temp Pulse Resp BP Pulse Ox
97.5 F 59 12 95/57 94
01/15/25 03:51 01/15/25 06:00 01/15/25 06:00 01/15/25 06:00 01/15/25 06:00
Intake and Output
01/14/25 01/15/25 01/16/25
06:59 06:59 06:59
Intake Total 1300 / 1300
Output Total 550 / 550
Balance 750 / 750
SaO2 94
Physical Exam
General: Comfortable and Other (NAD)
HEENT: Normocephalic, Anicteric and Moist Mucous Membranes
Cardiovascular: S1-S2 and Regular Rhythm
Respiratory: Clear and Non-Labored Respirations
GI: Soft, Non Distended and Non Tender
Neurology: Awake, Alert, Oriented and No Motor Deficits
Skin: Warm, Dry and Good Color
Labs/Micro/Reports
Lab Data
01/15/25 04:10
Laboratory Results
01/14/25
18:19
PT 14.0
INR 1.03
APTT 25.1
[2025-01-15] MEDS: PHENOBARBITAL 97.5 MG IV (07:43)
[2025-01-15] MEDS: THIAMINE INJECTION 200 MG IV (07:44)
--- NOTE | 2025-01-15 10:34 | PTCARENOTE ---
patient much more awake, alert, oriented. will attempt diet. removed restraints.
--- NOTE | 2025-01-15 12:36 | CM ---
Patient is in custody of [facility]. Discharge POC: Return to [facility].
--- NOTE | 2025-01-15 12:49 | CM ---
[facility] notified of need for evaluation.
--- NOTE | 2025-01-15 15:36 | W.PN.HOSP.TC ---
Addendum entered and electronically signed by Joel Conteh MD 01/16/25 14:27:
Alcohol withdrawal
Continue abscess
Start phenobarb taper
Discussed with ICU attending, agrees that she is okay for [facility]b [facility]
Continue thiamine folate
Suboxone use
Continue Suboxone presented
tolerating diet well
Original Note:
Today's Communication/Plan
-
Remove Coronel Bag Catheter
If patient is stable, able to pass urine, and ICU physician agrees, discharge patient.
Continue Thiamine and Folic Acid started in the hospital.
Continue of Phenobarbital Taper.
Assessment / Plan
Assessment / Plan
49 year old female with history of alcohol abuse, crystal methamphetamine use, suboxone use, hypertension, depression, and GERD. The patient was at the [facility] for a warrant. She was started on clonazapam and buprenorphine
along with her routine medications when she was found unresponsive, hypotensive at 70 over 40s with altered mental status. Patient woke up after being given Narcan, but was noted to be extremely agitated.
# Altered Mental Status
-History of illicit drug use and alcohol use
-MSAS score 0, COWS score 0
-CT head w/o IV contrast- unremarkable
-Chest- xray- no acute cardiopulmonary process
-Toxicology report:
Buprenorphine P
Barbituates P
Tricyclins P
Apmhetamins P
Methamphetamies P
B-hydroburate 0.75 H
-ECG
SINUS TACHYCARDIA
NONSPECIFIC ST ABNORMALITY
ABNORMAL ECG
-WBC- 5.4. Normal
-Glucose- 81 Normal
Not considering infectious, hypoglycemic and cardiac cause at this time.
Pain/sedation:
Continue with pain medication
Continue with Phenobarbital taper
Aspiration Precaution: Head above bed at >30 degrees
Speech therapy evaluation can be considered if at elevated risk
GI prophylaxis: Pantoprazole Sodium 40mg PO daily
#Chronic Alcohol Abuse
Drinks 2 pints of vodka daily
GGT 50H
AST H
42H
B-hydroburate 0.75 H
Complete Blood Count:
Hgb- 11.3 L
Hct 35.4
MCV 80.8
MCHC 32 L
Sodium Chloride IV fluid started.
Started on Thiamine Hcl 200 mg IV q8H (9 doses) then switched to oral Thiamine hcl 100mg PO BID
Started on Folic acid 1mg daily
Started on Phenobarbital Taper
#Urinary Retention
-Coronel bag catheter was attached, but removed for trial. Patient was able to spontaneously pass urine.
#Depression
Continue with Sertraline Hcl 100mg PO daily
Continue with Mirtazapine 15 mg daily
Patient assessed and deemed ready for discharge.
Anticipated Discharge: Today
Subjective/Interval History
-
Date of Service: January 15, 2025
Patient noted to be combative the night before. Patient was calm when seen in the morning. She verbalized that she was feeling fine and was not sure why she was admitted.
Objective Data
-
Labs:
Laboratory Results
01/15/25 01/15/25
04:10 04:29
WBC Cancelled Pending
Hgb Cancelled Pending
Hct Cancelled Pending
Plt Count Cancelled Pending
Sodium 142
Potassium 3.5
Chloride 107
Carbon Dioxide 29
BUN 19 H
Creatinine 0.6
Glucose 81
Calcium 9.1
Total Bilirubin 0.6
AST 64 H
ALT 42 H
Alkaline Phosphatase 50
Vital Signs:
Vital Signs
Temp Pulse Resp BP Pulse Ox
98.0 F 61 13 110/68 97
01/15/25 12:09 01/15/25 08:00 01/15/25 08:00 01/15/25 08:00 01/15/25 08:00
I&O
01/14/25 01/15/25 01/16/25
06:59 06:59 06:59
Intake Total 1300 / 1400 800 / 800
Output Total 550 / 550 150 / 150
Balance 750 / 850 650 / 650
Review of Systems
-
History Source: Patient
Constitutional: Reports Other (No fever, no chills, no weakness)
EENT: Reports No Symptoms Reported
Respiratory: Reports Other (No cough or trouble breathing)
Cardiac: Reports Other (No chest pain, palpitations, or diaphoresis)
Abdomen/GI: Reports Other (No abdominal pain, vomiting, or diarrhea)
Genitourinary: Reports Other (urine clear on Coronel bag catheter)
Musculoskeletal: Reports Other (No edema or muscle weakness)
Hematologic / Lymphatic: Reports Other (No bleeding)
Psych: Reports Other
Physical Exam
-
General: Well Developed, Comfortable and Conversant
HEENT: Normocephalic, Atraumatic, PERRLA and Other
Respiratory: Clear to Auscultation and Non Labored Respirations
Cardiac: Regular Rhythm and S1/S2
Breast: Deferred by me
GI: Soft, Nontender and Normal Bowel Sounds
Rectal: Deferred by Provider
Genito-urinary: Coronel (Coronel terminated, spontaneous urination observed after)
Musculoskeletal: No Cyanosis and No Edema
Skin: Warm
Neuro: AO x 3, No Motor Deficits and Tremors
[2025-01-15] MEDS: NSS 500 IV (16:21)
--- NOTE | 2025-01-15 16:57 | PTCARENOTE ---
Patient has been oriented, sleepy at times still but oriented. was able to get OOB to [facility]. will stop phenobarbital orders, [facility]
--- NOTE | 2025-01-15 17:43 | PTCARENOTE ---
report given to [facility]. assisted patient in getting dressed.
--- NOTE | 2025-01-15 19:01 | W.DCSUMMARY ---
Discharge Summary
Discharge Data
Date of Admission: 01/14/25
Date of Discharge: 01/16/25
-
Pending Results: No
Hospital Course
Discharging Physician : Mary Grace Jiménez
Disposition : [facility]
Primary care physician : Dr. Joel Conteh
Principal Discharge diagnosis : Alcohol Withdrawal, Opiate Abuse/Methamphetamine use, Chronic Alcohol abuse
Chronic Discharge diagnosis : Opiate Abuse/Methamphetamine use, Chronic Alcohol abuse, microcytic anemia, hypertension, depression, GERD
Hospital Course : Ms. Kang is a 49 year old female with past medical history of Opiate Abuse/Methamphetamine use, Chronic Alcohol abuse, microcytic anemia, hypertension, depression, and GERD from [facility] where she was
brought yesterday for a suppose it warrant. She was started on clonazepam and buprenorphine on along with her routine a.m. medications then she was she was found unresponsive, hypotensive blood pressure at 70 over 40s with altered mental status at
approximately 10 AM. She then received she received Narcan, woke up and was extremely agitated according to 2 correctional officers at bedside. Due to her extreme agitation she was unable to take sublingual buprenorphine in the ER. She required
Versed as she was thrashing about the bed. IV phenobarbital was given due to history of drinking 2 pints of vodka daily. She reportedly uses crystal methamphetamine, heroin and drink 2 pints of vodka daily. She does not appear to have any skin
popping areas on her body she does have some abrasions to left and right wrist from thrashing with handcuffs on she has current left leg handcuffed to the bed. She is sedated with Versed. Work up were obtained in the ER, including ECG, cardiac
monitoring, CT head w/o IV contrast, CBC, CMP, HCG, serum qualitative screen, Magnesium, Phosphorous, which were all largely unremarkable except the noted anemia and increased GGT 50, AST 64, ALT 42. ECG also showed sinus tachycardia with
nonspecific ST abnormality. Patient monitoring continued. Due to signs of substance withdrawal with accompanying agitation and hypotension, the patient was admitted to the ICU. Pain medication PRN with instructions given. Phenobarbital sodium 97.5
mg IV TID started. 0.9% NSS 1000ml IV 100 mls/hr continued. Medication reviewed, Lisinopril on hold due to hypotension. Case Management and dietary inpatient consulted. COWS, MSAS, Input/output, neurologic checks, vital signs, pulse ox/spot check
ordered as directed for continuous patient monitoring. Lovenox for DVT prophylaxis initiated. Further alcohol studies obtained including B-Hydroxybutyrate, GGTP, PTT, Prothrombin time, alcohol level. B-Hydrobutyrate and GGTP were elevated at 0.75
and 50, respectively. Urine Drug Abuse screen also taken which showed postive for Buprenorphine, Barbituates, Tricyclins, Apmhetamins, Methamphetamies, B-hydroburate 0.75 H. Hepatitis Panel also obtained to further study due to increase of AST 75
and ALT 40 which was negative, and Ferritin, Iron, Folate, and Vitamin B 12 checked to further investigate anemia and malnutrition that stems from chronic alcohol abuse. .Thiamine Injection 200 mg IV q8h with IV Folic Acid 1mg started. At the ICU,
patient was noted hemodynamically stable, but continues to be agitated and combative, she was sedated with versed. Aspiration precaution and patient monitoring continued. Coronel Catheter attached due to urinary retention. B12 440, Folate 7.4 and iron
studies were normal except for low percent saturation at 10. Patient was seen the next day. She was alert and oriented with no complaints, tremors. MSAS score 0, COWS score 0, hemodynamically stable with spontaneous urine output. Patient assessed
and was deemed ready for discharge. Phenobarbital taper continued, along with Thiamine 100mg PO and Folic Acid 1mg PO.
Important imaging findings :
CT (01/14/2025):
EART: Normal in size.
VASCULATURE: No significant vascular congestion.
LUNGS: The lungs are clear.
PLEURAL SPACE: No pneumothorax. No pleural effusion.
HILUM/MEDIASTINUM: Hilar and mediastinal margins are within normal limits.
IMPRESSION:
No acute cardiopulmonary process.
CT Head w/o IV contrast (01/14/2025):
There is no evidence of intracranial mass lesion or mass effect with no midline shift. There is no evidence of acute intracranial hemorrhage.
The ventricles and subarachnoid cisterns appear within normal limits. No abnormal extra-axial collection is identified.
Abbott-white matter differentiation appears grossly within normal limits for CT. There is no evidence for a focal area of infarction.
The visualized paranasal sinuses appear clear. The mastoid air cells appear clear.
IMPRESSION:
No evidence of acute intracranial abnormality.
Procedure findings :
Discharge Plan
-
Patient Disposition: [facility]
Discharge Diagnosis/Procedures: Altered Mental Status, Opiate Abuse/Methamphetamine use, acute transaminitis, microcytic anemia, hypertension, depression, GERD
Condition: Fair
Diet: Regular
Activity: No restrictions
Driving Restrictions: As prior to admission
Bathing Restrictions: None
Referrals:
[facility] [Family Provider, General]
Additional Discharge Medication Instructions: Patient instructed to take phenobarbital 97.2 mg tablet by mouth every 8 hours for next 3 doses
Then take 64.8 mg 1 tablet by mouth 3 times a day to complete total of 6 doses
Then take phenobarbital 32.4 mg tablet 1 tablet by mouth 3 times a day for the next 6 doses
Prescriptions:
New
phenobarbital 32.4 mg Tablet
32.4 mg PO TID Qty: 6 0RF
phenobarbital 97.2 mg tablet
97.2 mg PO TID Qty: 3 0RF
phenobarbital 64.8 mg tablet
64.8 mg PO TID Qty: 6 0RF
Continued
ondansetron HCl 4 mg Tablet
4 mg PO TIDPRN PRN (Reason: nausea)
clonazepam 0.5 mg Tablet
0.5 mg PO DIRECTED
Rx Instructions:
2mg bid on days 01/13/25 and 01/15/25 then 1mg tid on days 01/16/25 and 01/17/25 then 1mg bid on days and 01/19/25 then 0.5mg bid on days 01/20/25 and 01/21/25 then 0.5mg daily on day 02/11/25
sertraline 100 mg Tablet
100 mg PO DAILY
loperamide 2 mg Tablet
2 mg PO TIDPRN PRN (Reason: dairrhea)
thiamine HCl (vitamin B1) 100 mg Tablet
100 mg PO DAILY
therapeutic multivitamin Tablet
1 tab PO DAILY
pantoprazole [Protonix] 40 mg Tablet,Delayed Release (Dr/Ec)
40 mg PO DAILY
folic acid 1 mg Tablet
1 mg PO DAILY
mirtazapine 15 mg Tablet
15 mg PO HS
gabapentin 100 mg Capsule
400 mg PO DIRECTED
Rx Instructions:
400mg bid on days 01/13/25 and 01/14/25 then 200mg bid on days 01/15/25 and 01/16/25 then 200mg qhs on days 01/17/25 and 01/18/25
buprenorphine HCl 8 mg Tablet, Sublingual
24 mg SUBLINGUAL DAILY
naloxone [Narcan] 4 mg/actuation [place],Non-Aerosol
4 mg INTRANASAL Q2MPRN PRN (Reason: over dose)
magnesium oxide 400 mg magnesium Tablet
400 mg PO DAILY
lisinopril 20 mg Tablet
20 mg PO DAILY Qty: 0 0RF
hydrochlorothiazide 12.5 mg Tablet
12.5 mg PO DAILY Qty: 0 0RF
Discharge Orders:
Discharge Patient (As Directed); Ordered 01/15/25
Ordered By: Jimy Zavala
Discharge Date and Time
Discharge Date/Time: 01/15/25 18:36
Print Language: TOGOLESE
--- NOTE | 2025-01-16 08:56 | CM ---
Patient was medically cleared for discharge back to [facility] on 01/15/25 in PM. [facility] system provided transport.
== END 2025-01-15 18:36 | DRG 897 ==
LOC: ICU 16:39
PROVIDERS: Clinical Nurse Specialist Family Health; ADMITTING PHYSICIAN Hospitalist; ATTENDING PHYSICIAN Hospitalist; CONSULT PHYSICIAN Internal Medicine; EMERGENCY PHYSICIAN Emergency Medicine
DX: F10.139 Alcohol abuse with withdrawal, unspecified (principal); E46 Unspecified protein-calorie malnutrition; I10 Essential (primary) hypertension; F11.23 Opioid dependence with withdrawal; F15.23 Other stimulant dependence with withdrawal; F32.A Depression, unspecified; K21.9 Gastro-esophageal reflux disease without esophagitis; D50.9 Iron deficiency anemia, unspecified; I95.9 Hypotension, unspecified; Z68.25 Body mass index [BMI] 25.0-25.9, adult; Z79.899 Other long term (current) drug therapy
CPT/HCPCS: 70450; 71045; 80053; 80061; 80143; 80306; 80307; 81003; 81015; 82010; 82077; 82248; 82607; 82728; 82746; 82962; 82977; 83540; 83550; 83735; 84100; 84703; 85025; 85610; 85730; 86705; 86706; 86708; 86709; 86803; 87070; 87340; 93005; 96374; 96375; 96376; 99285